=== PATIENT | female | born 1995 | race Caucasian/White ===

== ENCOUNTER 2016-10-18 19:12 | Emergency (ER) | payer MEDICAID ==
[~2016-10-18] VITALS: Ht 162.6 cm; Wt 82.3 kg
[2016-10-18] MEDS ORDERED: MECLIZINE CHEWABLE 25 MG TAB PO ONE (20:00)
[2016-10-18] MEDS ORDERED: SODIUM CHLORIDE 0.9% 1,000ML IVBOLUS ONE (20:00)
[2016-10-18] MEDS ORDERED: MECLIZINE CHEWABLE 25 MG TAB ONE (20:02)
[2016-10-18 20:10] LABS: HEMOGLOBIN 13.3 g/dL (11.7-16.4)
[2016-10-18 20:23] LABS: BLOOD UREA NITROGEN 8 mg/dL (7-18)
[2016-10-18 21:37] VITALS: BP 121/71
== END 2016-10-18 21:39 | disposition home or self-care (01) ==
LOC: ED 21:30
DX: O26.891 Other specified pregnancy related conditions, first trimester (principal); R42 Dizziness and giddiness; Z3A.10 10 weeks gestation of pregnancy
CPT/HCPCS: 36415; 80048; 82040; 85025; 93005; 96360; 99285; J7030

== ENCOUNTER 2016-12-18 20:01 | Emergency (ER) | payer SELFPAY ==
[~2016-12-18] VITALS: Ht 162.6 cm; Wt 83.7 kg
[2016-12-18 20:49] LABS: ASPARTATE AMINO TRANSFERASE 13 U/L (15-37); BLOOD UREA NITROGEN 6 mg/dL (7-18)
[2016-12-18] MEDS ORDERED: CEFDINIR 300 MG CAPSULE PO ONE (21:30)
[2016-12-18 21:49] VITALS: BP 134/78
== END 2016-12-18 22:15 | disposition home or self-care (01) ==
LOC: ED 22:10
DX: O23.12 Infections of bladder in pregnancy, second trimester (principal); Z3A.19 19 weeks gestation of pregnancy
CPT/HCPCS: 36415; 76805; 80053; 81001; 85025; 87077; 87086; 87186; 99285

== ENCOUNTER 2017-01-11 10:32 | Emergency (ER) | payer SELFPAY ==
[~2017-01-11] VITALS: Ht 162.6 cm; Wt 84.6 kg
[2017-01-11 10:35] VITALS: BP 124/77
== END 2017-01-11 11:01 | disposition home or self-care (01) ==
LOC: ED 10:55
DX: K02.9 Dental caries, unspecified (principal); H92.01 Otalgia, right ear
CPT/HCPCS: 99283

== ENCOUNTER 2017-10-06 09:25 | Emergency (ER) | payer MEDICAID, OTHER ==
[~2017-10-06] VITALS: Ht 162.6 cm; Wt 80.0 kg
[2017-10-06 09:45] VITALS: BP 119/79
== END 2017-10-06 11:13 | disposition home or self-care (01) ==
LOC: ED 10:45
DX: R51 Headache (principal); V89.2XXA Person injured in unspecified motor-vehicle accident, traffic, initial encounter; Y93.89 Activity, other specified; Y92.488 Other paved roadways as the place of occurrence of the external cause; Y99.8 Other external cause status
CPT/HCPCS: 99282